=== PATIENT | female | born 1945 | race Caucasian/White ===

== ENCOUNTER 2016-11-20 06:42 | Emergency (ER) | payer MEDICARE ==
[~2016-11-20] VITALS: Ht 160 cm; Wt 81.2 kg
--- NOTE | 2016-11-20 06:43 | NUR ---
ARRIVAL PT ARRIVED AMBULATORY TO ER 3 C/O RIGHT SHOULDER AND ARM PAIN ONSET LAST NIGHT AT 2300. PT STATES "I THINK I MAY BE HAVING A HEART ATTACK". PT DENIES ANY CHEST PAIN AT THIS TIME. PT DENIES ANY CARDIAC HISTORY. PT PLACED ON TEACHER OF THE SIGHT IMPAIRED. EDP NOTIFIED OF PT ARRIVAL.
[2016-11-20] MEDS ORDERED: VALS320T2 PO (06:53)
[2016-11-20] MEDS ORDERED: ASPIRIN ONE ×2 (06:53→06:56)
[2016-11-20] MEDS ORDERED: AMLO5TAB2 PO (06:53)
[2016-11-20] MEDS ORDERED: ASPIRIN EC PO STA (06:58)
[2016-11-20 07:10] LABS: BASOPHIL % 0.2 % (0.0-0.2); EOSINOPHIL # 0.1 10^3/uL (0.0-0.2); EOSINOPHIL % 0.8 % (0.0-5.0); LYMPHOCYTES # 2.3 10^3/uL (1.0-4.8); LYMPHOCYTES % 27.5 % (24.0-44.0); MEAN CELL HGB 29.1 pg (26-34); MEAN CELL HGB CONCENTRATION 34.2 g/dL (33-37); MEAN PLATELET VOLUME 9.7 fL (7.8-11.0); MONOCYTES # 0.5 10^3/uL (0.3-0.8); MONOCYTES % 5.6 % (5.0-12.0); NEUTROPHIL # 5.5 10^3/uL (1.8-7.7); NEUTROPHILS % 65.7 % (41.0-85.0); RED CELL DISTRIBUTION WIDTH 12.5 % (11.5-14.5); WHITE BLOOD CELL 8.4 10^3/uL (4.5-11.0)
--- NOTE | 2016-11-20 07:20 | DIREP ---
PROCEDURE:CHEST 1 VIEW COMPARISON:None. INDICATIONS:chest pain FINDINGS: LUNGS/PLEURA:No significant pulmonary parenchymal abnormalities. No effusions. VASCULATURE:Normal. Unremarkable pulmonary vasculature. CARDIAC:Normal. No cardiac silhouette abnormality or cardiomegaly. MEDIASTINUM:Normal. No visible mass or adenopathy. BONES:Normal. No fracture or visible bony lesion. OTHER:Negative. CONCLUSION:Normal examination. Dictated by: Rico Reyes M.D. on 11/20/2016 at 07:19 AM
[2016-11-20] MEDS ORDERED: TORADOL IM STA (07:28)
--- NOTE | 2016-11-20 07:28 | ER.PDOC ---
General Chief Complaint: Chest Pain-Cardiac Nature Stated Complaint: RIGHT SHOULDER PAIN Time seen by MD: 07:02 Source: patient Exam Limitations: no limitations History of Present Illness Initial Comments toradol 60 im Timing/Duration: 1-3 hours Radiation: no radiation Activities at Onset: none Prior CP/Workup: No Prior Chest Pain Nitro Today/Relief: No Nitro Taken Today Aspirin Today: No Aspirin Today Associated Symptoms: denies symptoms Prior symptoms/Treatment: Similar symptoms previous Allergies: Coded Allergies: atorvastatin (Verified Allergy, Unknown, 11/20/16) cephalexin (Verified Allergy, Unknown, Swelling, 11/20/16) ezetimibe (Verified Allergy, Unknown, 11/20/16) lisinopril (Verified Allergy, Unknown, 11/20/16) rosuvastatin (Verified Allergy, Unknown, 11/20/16) simvastatin (Verified Allergy, Unknown, 11/20/16) sitagliptin (Verified Allergy, Unknown, 11/20/16) sulfamethoxazole (Verified Allergy, Unknown, Swelling, 11/20/16) trimethoprim (Verified Allergy, Unknown, Swelling, 11/20/16) Home Meds Reported Medications Amlodipine Besylate (AMLODIPINE BESYLATE) 5 Mg Tablet, 1 TAB PO DAILY, #30 TAB 5 Refills 11/20/16 Valsartan (DIOVAN) 320 Mg Tablet, 1 TAB PO DAILY, #90 TAB 1 Refill 11/20/16 Past Medical History Medical History: hypertension Surgical History: hysterectomy LMP (females 10-50): hysterectomy Family History Significant Family History: no pertinent family hx Social History Smoking: non-smoker Alcohol Use: none Drug Use: none Constitutional: denies fever EENTM: denies eye pain Respiratory: denies cough Cardiovascular: denies chest pain Genitourinary: burning Musculoskeletal: back pain Psychiatric/Neurological: anxiety All Other Systems: Reviewed and Negative Physical Exam General Appearance: Anxious HEENT: PERRL/EOMI, Normal ENT Inspection Neck: Non-Tender, Full Range of Motion, Supple, Normal Inspection Respiratory: chest non-tender, lungs clear, normal breath sounds, no respiratory distress, no accessory muscle use Gastrointestinal: Normal Bowel Sounds, No Organomegaly, No Pulsatile Mass, Non Tender, Soft Extremities: Normal Range of Motion, Non-Tender, Normal Inspection, No Pedal Edema, No Calf Tenderness, Normal Capillary Refill Skin: Normal Color, Warm/Dry Lymphatic: No Adenopathy Results/Orders Results/Orders Laboratory Tests Test 11/20/16 07:03 White Blood Count 8.4 10^3/uL (4.5-11.0) Red Blood Count 4.81 10^6/uL (4.00-5.20) Hemoglobin 14.0 g/dL (12.0-15.0) Hematocrit 40.9 % (36.0-46.0) Mean Corpuscular Volume 85.0 fL (78-100) Mean Corpuscular Hemoglobin 29.1 pg (26-34) Mean Corpuscular Hemoglobin Concent 34.2 g/dL (33-37) Red Cell Distribution Width 12.5 % (11.5-14.5) Platelet Count 304 10^3/uL (150-400) Mean Platelet Volume 9.7 fL (7.8-11.0) Neutrophils (%) (Auto) 65.7 % (41.0-85.0) Lymphocytes (%) (Auto) 27.5 % (24.0-44.0) Monocytes (%) (Auto) 5.6 % (5.0-12.0) Neutrophils # (Auto) 5.5 10^3/uL (1.8-7.7) Lymphocytes # (Auto) 2.3 10^3/uL (1.0-4.8) Monocytes # (Auto) 0.5 10^3/uL (0.3-0.8) Absolute Immature Granulocyte (auto 0.02 10^3 u/L (0-2) Eosinophils % 0.8 % (0.0-5.0) Basophils % 0.2 % (0.0-0.2) Basophils # 0.0 10^3/uL (0.0-0.1) Eosinophil Count 0.1 10^3/uL (0.0-0.2) Percent Immature Gran (Cell Imm) 0.20 % (0.00-0.50) Administered Medications Medications (Trade) Dose Ordered Sig/Jorden Route PRN Reason Start Time Stop Time Status Last Admin Dose Admin Aspirin (Aspirin Ec) 162 mg STAT STAT PO 11/20/16 06:58 11/20/16 07:00 DC 11/20/16 06:57 Progress Progress cardiacs neg labs rachele d dimer wnl EKG/XRAY/CT/US EKG: NSR, nonspecific ST T wave chg EKG Comments: [address] no st t changes XRAY: chest XRAY Comments: neg Departure Time of Disposition: 08:00 Disposition: 01 HOME, SELF-CARE Impression: Primary Impression: Shoulder pain, right Condition: Stable Referrals: PCP,UNKNOWN (PCP) PRIMARY CARE PROVIDER Additional Instructions: tylenol #[address] MD Nov 20, 2016 07:28
[2016-11-20] MEDS ORDERED: TORADOL ONE (07:30)
[2016-11-20 07:38] LABS: ALANINE AMINOTRANSFERASE 31 U/L (12-78); ALKALINE PHOSPHATASE 83 U/L (50-136); ASPARTATE AMINO TRANSFERASE 25 U/L (0-35); CALCIUM 9.8 mg/dL (8.4-10.5); CARBON DIOXIDE 21.9 mmol/L (20.0-32); GLUCOSE 180 mg/dL (70-110)
[2016-11-20 08:11] VITALS: BP 157/81
== END 2016-11-20 08:08 | disposition home or self-care (01) ==
LOC: ER 06:42
DX: M25.511 Pain in right shoulder (principal); I10 Essential (primary) hypertension; M54.9 Dorsalgia, unspecified; F41.9 Anxiety disorder, unspecified; Z88.8 Allergy status to other drugs, medicaments and biological substances; Z88.2 Allergy status to sulfonamides; Z90.710 Acquired absence of both cervix and uterus; Z79.899 Other long term (current) drug therapy
CPT/HCPCS: 36415; 71010; 80053; 82550; 82553; 83880; 84484; 85025; 85379; 85610; 93005; 96372; 99285; J1885

== ENCOUNTER → 2016-11-24 | Outpatient (CLI) | payer MEDICARE ==
[~2016-11-24] MED LIST: AMLO5TAB2 PO; VALS320T2 PO
--- NOTE | 2016-11-24 11:59 | DIREP ---
PROCEDURE:CHEST 2 VIEWS COMPARISON:[facility], CR, XRAY CHEST SINGLE VW, 11/20/2016, 07:09 AM. INDICATIONS:CHEST PAIN FINDINGS: LUNGS/PLEURA:No significant pulmonary parenchymal abnormalities. No effusions. VASCULATURE:Normal. Unremarkable pulmonary vasculature. CARDIAC:Normal. No cardiac silhouette abnormality or cardiomegaly. MEDIASTINUM:Normal. No visible mass or adenopathy. BONES:Degenerative changes of the thoracolumbar spine. OTHER:Negative. CONCLUSION:No acute cardiopulmonary abnormality. Dictated by: Josiah Urbina M.D. on 11/24/2016 at 11:58 AM
--- NOTE | 2016-11-24 13:28 | DIREP ---
PROCEDURE:XR SPINE CERVICAL COMP W/ OBLIQUES COMPARISON:None. INDICATIONS:NECK PAIN M54.2 TECHNIQUE:AP, lateral, bilateral oblique, and dens views of the cervical spine are provided. FINDINGS: ALIGNMENT:Mild straightening of the cervical spine VERTEBRAE:Bilateral uncovertebral/facet hypertrophy produce is [id number] bony encroachment of the neural foramina C 4-5 and C5-6. DISK SPACES:Severe disc space narrowing C5-6 and C6-7, moderate disc space narrowing C4-5. CERVICAL RIBS:None. OTHER:Normal. CONCLUSION: 1. Cervical spondylosis most severe at C4-5 through C6-7. Dictated by: Negro Mims M.D. on 11/24/2016 at 12:12 PM Read in [place]
== END | disposition home or self-care (01) ==
LOC: RAD 10:00
PROVIDERS: ATTEND Internal Medicine
DX: M47.892 Other spondylosis, cervical region (principal); R07.2 Precordial pain
CPT/HCPCS: 71020; 72050